=== PATIENT | male | born 1945 | race Caucasian/White ===

== ENCOUNTER 2020-10-31 17:17 | Outpatient (CLI) | payer MEDICARE, OTHER, SELFPAY | END 2020-10-31 17:18 | disposition home or self-care (01) | LOC: ANHCOVIDVC 17:17 | PROVIDERS: PCP Family Medicine | DX: Z23 Encounter for immunization (principal) | CPT/HCPCS: 0001A; 91300 ==

== ENCOUNTER 2020-11-21 17:15 | Outpatient (CLI) | payer MEDICARE, OTHER, SELFPAY | END 2020-11-21 17:16 | disposition home or self-care (01) | LOC: ANHCOVIDVC 17:15 | PROVIDERS: PCP Family Medicine | DX: Z23 Encounter for immunization (principal) | CPT/HCPCS: 0002A; 91300 ==

== ENCOUNTER 2021-03-22 01:16 | Day surgery (SDC) | payer MEDICARE, OTHER, SELFPAY ==
[2021-03-14 10:30] VITALS: BMI 35.9
--- NOTE | 2021-03-21 09:08 | WPDANESEPPF ---
Anes - Initial Pre Proc Eval Procedure: Operation Date: 03/22/21 08:00 Proposed Procedures p Screening Colonoscopy - Johnson Bernard MD Date/Time: 03/21/21 09:08 Surgeon: Johnson Bernard MD Pre Op Diagnosis: hx of colon polyps Patient Data Age: 75 Gender: M Height: 1.73 m Weight: 107 kg Allergies Allergy/AdvReac Type Severity Reaction Status Date / Time hydrocodone AdvReac Mild Other Verified 03/22/21 06:39 Home Medications Medication Instructions Recorded Confirmed Type cholecalciferol (vitamin D3) 125 5,000 unit PO DAILY 12/15/19 03/22/21 History mcg (5,000 unit) capsule tamsulosin 0.4 mg capsule 0.4 mg PO DAILY #90 cap 06/20/20 03/22/21 Rx valsartan 320 mg tablet 320 mg PO DAILY #90 tablet 03/06/21 03/22/21 Rx atorvastatin 20 mg PO HS 03/14/21 03/22/21 History finasteride 5 mg PO HS 03/14/21 03/22/21 History latanoprost 1 drp EACH EYE HS 03/14/21 03/22/21 History metformin 1,000 mg PO QAM 03/14/21 03/22/21 History metformin 500 mg PO HS 03/14/21 03/22/21 History omeprazole 20 mg PO HS 03/14/21 03/22/21 History Patient hx anesthesia problems: none Family hx anesthesia problems: none PMFSH Past Medical History Medical History (Updated 03/21/21 @ 09:09 by Eduard Calabrese DO) BMI 37.0-37.9, adult Chronic midline low back pain without sciatica Diabetes GERD (gastroesophageal reflux disease) Glaucoma Hypertension Kidney stones Mixed hyperlipidemia Surgical History Surgical History History of hernia repair History of incision and drainage neck abscess Family History Family History Father Family history of malignant neoplasm, Onset Age: 72 Mother Family history of malignant neoplasm, Onset Age: 91 Social History Social History Smoking status: Never smoker Alcohol intake: never Substance use: never Substance use type: does not use Living arrangements: with family Spiritual care concerns: No Anes - Eval Final PreProcedure Day of Procedure 03/21/21 09:08 Patient weight: obese Heart: regular rate and rhythm Lungs: clear to auscultation and normal air movement Airway: Mallampati scale class II Neurological: alert and oriented Last oral intake: >/= 8 hours ASA classification: III Emergent: no Anesthetic plan: proceed Anesthesia type and monitoring: general GIVS and standard monitoring Informed Consent: The patient's anesthetic plan and its attendant risks and benefits were discussed with the patient/family/POA. Questions were solicited and answers provided to the satisfaction of the patient/family/POA.
[2021-03-22 06:40] VITALS: BP 144/71; PULSE 66; RESP 18; TEMP 36.1; O2SAT 97; BMI 34.1
[2021-03-22] MEDS: LACTATED RINGERS 1,000 ML 150 ML IV CONT (06:51)
[2021-03-22 06:52] LABS: Glucose Point of Care 92 mg/dl (65-105)
--- NOTE | 2021-03-22 07:20 | PM.HPGS ---
History of Present Illness History of Present Illness Consent: Risks, benefits, and alternatives have been discussed and questions answered. Patient agrees to proceed with procedure. Chief complaint: hx of colon polyps Narrative: John Magdaleno is a 75 year old male here for colon cancer screening. He had a couple of polyps removed 6 years ago Review of Systems Review of Systems: All systems reviewed & are unremarkable except as noted in HPI and below PMFSH Past Medical History Medical History BMI 37.0-37.9, adult Chronic midline low back pain without sciatica Diabetes GERD (gastroesophageal reflux disease) Glaucoma Hypertension Kidney stones Mixed hyperlipidemia Surgical History Surgical History History of hernia repair History of incision and drainage neck abscess Family History Family History Father Family history of malignant neoplasm, Onset Age: 72 Mother Family history of malignant neoplasm, Onset Age: 91 Social History Social History Smoking status: Never smoker Alcohol intake: never Substance use: never Substance use type: does not use Living arrangements: with family Spiritual care concerns: No Meds Home Medications and Allergies Home Medications Medication Instructions Recorded Confirmed Type cholecalciferol (vitamin D3) 125 5,000 unit PO DAILY 12/15/19 03/22/21 History mcg (5,000 unit) capsule tamsulosin 0.4 mg capsule 0.4 mg PO DAILY #90 cap 06/20/20 03/22/21 Rx valsartan 320 mg tablet 320 mg PO DAILY #90 tablet 03/06/21 03/22/21 Rx atorvastatin 20 mg PO HS 03/14/21 03/22/21 History finasteride 5 mg PO HS 03/14/21 03/22/21 History latanoprost 1 drp EACH EYE HS 03/14/21 03/22/21 History metformin 1,000 mg PO QAM 03/14/21 03/22/21 History metformin 500 mg PO HS 03/14/21 03/22/21 History omeprazole 20 mg PO HS 03/14/21 03/22/21 History Allergies Allergy/AdvReac Type Severity Reaction Status Date / Time hydrocodone AdvReac Mild Other Verified 03/22/21 06:39 Vital Signs Vital Signs - 24 hr 03/22/21 06:40 Temperature 36.1 C L Pulse Rate 66 Respiratory Rate 18 Blood Pressure 144/71 H Pulse Oximetry 97 Exam Resp: Auscultation: clear to auscultation bilaterally Cardio: Rate: regular rate Rhythm: regular rhythm GI: GI Palp: Yes Soft to palpation and No Tenderness to palpation present (GI) Assessment and Plan Assessment and plan (1) Colon cancer screening: Code(s): Z12.11 - Encounter for screening for malignant neoplasm of colon Status: Acute Assessment and Plan: Colonoscopy with possible biopsy or polypectomy or cautery or injection of substances.
[2021-03-22 08:24] VITALS: BP 109/65; PULSE 60; RESP 18; O2SAT 95
[2021-03-22 08:34] VITALS: BP 127/79; PULSE 57; RESP 22; O2SAT 97
[2021-03-22 08:44] VITALS: BP 137/81; PULSE 57; RESP 23; O2SAT 98
== END 2021-03-22 08:53 | disposition home or self-care (01) ==
PROVIDERS: PCP Family Medicine; Visit Provider Internal Medicine Gastroenterology
PROC: 0DJD8ZZ Inspection of Lower Intestinal Tract, Via Natural or Artificial Opening Endoscopic (ICD-10-PCS; CPT 45378; principal; 2021-03-22 08:00)
DX: Z12.11 Encounter for screening for malignant neoplasm of colon (principal); K57.30 Diverticulosis of large intestine without perforation or abscess without bleeding; Z86.010 Personal history of colon polyps; E11.9 Type 2 diabetes mellitus without complications; I10 Essential (primary) hypertension; E78.2 Mixed hyperlipidemia; K21.9 Gastro-esophageal reflux disease without esophagitis; H40.9 Unspecified glaucoma; Z79.84 Long term (current) use of oral hypoglycemic drugs; E66.9 Obesity, unspecified; Z68.34 Body mass index [BMI] 34.0-34.9, adult
CPT/HCPCS: G0105; 82948; J2001; J2704; J7120

== ENCOUNTER → 2022-06-28 10:12 | Outpatient (CLI) | payer MEDICARE, OTHER, SELFPAY ==
--- NOTE | ~2022-06-28 | XR_ITS ---
XR chest 2V 06/28/2022 10:35 Indication: Cough Procedure: 2 view chest Comparison: No prior studies for comparison. Findings: Heart size normal. There is a pleural-based density right mid thorax. No focal air space di sease, pulmonary edema, pleural effusion or suspected pneumothorax. Impression: 1: Pleural-based nodular density right mid thorax. Follow-up CT chest recommended. Reviewed, dictated and finalized at location A. Impression: 1: Pleural-based nodular density right mid thorax. Follow-up CT chest recommend ed.
== END ==
PROVIDERS: PCP Family Medicine; Visit Provider Family Medicine
DX: R05.9 Cough, unspecified (principal); R91.8 Other nonspecific abnormal finding of lung field
CPT/HCPCS: 71046

== ENCOUNTER 2022-07-05 14:34 | Outpatient (CLI) | payer MEDICARE, OTHER, SELFPAY ==
--- NOTE | ~2022-07-05 | CT_ITS ---
EXAMINATION:CT diagnostic chest wo con DATE: 07/05/2022 14:51 INDICATION: Lung nodule. Abnormal chest radiograph. TECHNIQUE: Computed tomography (CT) of the chest was performed without intravenous contrast. Automate d exposure control and iterative reconstruction technique were employed. The dose-length product (DLP ) was 596.07 mGy-cm. COMPARISON: Chest 2 views 06/28/2022 FINDINGS: The lungs demonstrate mild atelectasis. A calcified left lung nodule and calcified left hil ar and mediastinal lymph nodes are consistent with old granulomatous disease. No pleural effusion. Th e heart size is normal. There are coronary artery calcifications. No pericardial effusion. There is e ctasia of ascending aorta measuring 4.0 cm. There is mild chronic height loss of multiple thoracic ve rtebral bodies. 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 There are multiple old healed right rib fracture s. IMPRESSION: 1. No abnormal correlate for the chest radiograph finding. Reviewed, dictated and finalized at location A. COUNSELOR
== END 2022-07-05 14:35 | disposition home or self-care (01) ==
PROVIDERS: PCP Family Medicine; Visit Provider Family Medicine
DX: R91.8 Other nonspecific abnormal finding of lung field (principal)
CPT/HCPCS: 71250

== ENCOUNTER 2022-10-10 09:27 | Outpatient (CLI) | payer MEDICARE, OTHER, SELFPAY ==
--- NOTE | 2022-10-10 09:58 | ECHO_ITS ---
Patient Info Name: John Magdaleno Age: 77 years : 1945 Gender: Male Ht: 68 in Wt: 245 lbs BSA: 2.36 m2 HR: 78 bpm BP: 151 / 79 mmHg Technical Quality: Fair Exam Date: 10/10/2022 10:04 AM Exam Location: [facility] Patient Status: Outpatient Admit Date: 10/10/2022 Staff Ordering Physician: Shay Crandall DO Clinical Trial Associate: Gracia Perez RDCS Attending Provider: Shay Crandall DO Referring Physician: Raz HERNANDEZ; Exam Type: CA echo dop color flow w con Study Info Indications R06.09 - Other forms of dyspnea Complete two-dimensional, color flow and Doppler transthoracic echocardiogram is performed with contrast to opacify the left ventricle and to improve the deliniation of the left ventricle endocardial borders. Contrast/Agitated Saline Contrast/Ag. Saline: Definity Amount: 3.00 ml Administered By: Gracia Perez [facility] Existing IV Access: Yes IV Access Condition: patent with no signs of infiltration New IV Access: Dorsum of Hand and Left Site Condition: IV removed Summary 1. Left ventricular chamber dimension is mildly enlarged. 2. Definity contrast administered improved wall motion interpretation. 3. Left ventricular systolic function is normal, estimated at 60-65%. 4. There is mild concentric increased left ventricular wall thickness. 5. The left ventricular diastolic function is grade I diastolic dysfunction. 6. E/e' 10 is mildly elevated. 7. Left atrial chamber dimension is mildly enlarged. 8. There is mild tricuspid valve regurgitation. 9. No pulmonary hypertension, estimated pulmonary arterial systolic pressure is 34 mmHg. Left Ventricle E/e' 10 is mildly elevated. Definity contrast administered improved wall motion interpretation. Left ventricular chamber dimension is mildly enlarged. Left ventricular systolic function is normal, estimated at 60-65%. There is mild concentric increased left ventricular wall thickness. The left ventricular diastolic function is grade I diastolic dysfunction. Right Ventricle Right ventricular chamber dimension is normal. Right ventricular systolic function is normal. Left Atria Left atrial chamber dimension is mildly enlarged. Right Atria Right atrial chamber dimension is normal. Aortic Valve The aortic valve is trileaflet. There is no aortic valve stenosis. There is no aortic valve regurgitation. Pulmonic Valve There is no pulmonic regurgitation. Mitral Valve There is no mitral valve stenosis. There is no mitral valve regurgitation. Tricuspid Valve There is mild tricuspid valve regurgitation. No pulmonary hypertension, estimated pulmonary arterial systolic pressure is 34 mmHg. Pericardium/Pleural There is no pericardial effusion. Inferior Vena Cava Normal inferior vena cava with >50% collapse upon inspiration consistent with normal right atrial pressure, 5 mmHg. Aorta The aortic root size at the sinus of Valsalva is normal. Left Ventricular Outflow Tract Name Value Normal LVOT 2D LVOT Diameter 2.14 cm LVOT Doppler LVOT Peak Gradient 5 mmHg
[2022-10-10] MEDS: PERFLUTREN LIPID MICROSPHERES 1.5 ML VIAL DILUTED TO 10 ML TOTAL VOLUME IV PUSH (10:30)
== END 2022-10-10 09:28 | disposition home or self-care (01) ==
LOC: ANHCARD 09:28
PROVIDERS: PCP Family Medicine; Visit Provider Internal Medicine Cardiovascular Disease
DX: R06.09 Other forms of dyspnea (principal); I36.1 Nonrheumatic tricuspid (valve) insufficiency
CPT/HCPCS: C8929; Q9957

== ENCOUNTER 2022-10-31 08:06 | Outpatient (CLI) | payer MEDICARE, OTHER, SELFPAY ==
--- NOTE | 2022-11-12 13:34 | WPDSLEEPSTUD ---
Sleep Study Date of Study: 10/31/22 Ordering Provider: Shay Crandall DO Interpreting Physician: Clarissa Painting MD Sleep Study Type: Split Polysomnogram Height: 1.73 m Weight: 111.13 kg Body Mass Index: 37.2 Neck Circumference (inches): 20 Surprise: 10 Reason for Sleep Study Excessive sleepiness, snoring Sleep History John Magdaleno is a 77-year-old man with constant loud snoring which always bothers others. He does not awaken at night feeling short of breath, only rarely awakens with heartburn, belching or coughing. He frequently has trouble sleeping with a cold. He does not gasp for breath at night. He rarely sweats excessively at night. He does not notice palpitations or irregular heart beats at night. He occasionally falls asleep in the day, never involuntarily, rarely while driving. He does not have loss of muscle tone with strong emotion. He does not feel paralyzed on waking or falling asleep. He occasionally has vivid dreamlike scenes on waking or falling asleep. He is not afraid to go to sleep. No nightmares. Rarely remembers his dreams. He rarely has racing thoughts. He does not feel sad or depressed. He rarely feels anxious. He occasionally has muscle tension. He does not kick at night, rarely has achy or crawly feelings in his legs at night. He does not have leg pain at night. There is no morning jaw pain. He does not grind his teeth during sleep. He occasionally is bothered by pain during the day, never awakened by pain at night. He frequently wakes up feeling stiff in the morning. He has frequent nocturia. He has memory problems. He often awakens feeling refreshed. Normal bedtime is 12 midnight, falling asleep within 3 minutes, waking to go to urinate 3 times at night. These awakenings occur in the middle of the night and the director organizational hours. He wakes between 8-9 am. His weekend schedule is the same. He takes naps in the early afternoon or evening. A short nap lasting 10-15 minutes can be refreshing. Habits: Caffeine 1-2 per day. No alcohol. No recreational substances. [facility] Past Medical History Medical History (Updated 11/12/22 @ 14:17 by Clarissa Painting MD) BMI 37.0-37.9, adult Chronic midline low back pain without sciatica Cough COVID-19 (08/22/22) COVID-19 starting 08/22/2022 with Paxlovid 08/24/2022. Diabetes GERD (gastroesophageal reflux disease) Glaucoma Hypertension Increased intraocular pressure Kidney stones Lung nodule (06/28/22) pleural-based lung nodule right lung on chest x-ray 06/28/2022 with CXR otherwise normal with no active disease. CT of the chest on 07/05/2022 reveals no evidence of a pleural mass. The patient had granulomatous disease, diffuse degenerative changes of the thoracic spine, coronary artery calcifications, aorta at 4.0 cm. Male erectile dysfunction, unspecified Mixed hyperlipidemia Total cholesterol 142, triglycerides 96, HDL 49, LDL 75 on 12/23/2021. Total cholesterol 135, HDL 48, triglycerides 91, LDL 70 on 06/05/2022. 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 Bernard. Recheck in 5 years. Screening for diabetic retinopathy no diabetic retinopathy on eye exam 12/14/2021. Surgical History Surgical History History of hernia repair History of incision and drainage neck abscess Family History Family History Father Family history of malignant neoplasm, Onset Age: 72 Mother Family history of malignant neoplasm, Onset Age: 91 Social History Social History (Updated 06/28/22 @ 09:01 by Mattie Monique MA) Smoking status: Never smoker Alcohol intake: never Substance use: never Substance use type: does not use Lack of Transportation: No Lack of Food: Never True Current Housing: [facility]
[2022-11-13 16:02] VITALS: BMI 37.2
== END 2022-11-01 07:30 | disposition home or self-care (01) ==
LOC: ANHCSM 08:10
PROVIDERS: PCP Family Medicine; Visit Provider Internal Medicine Cardiovascular Disease
DX: G47.10 Hypersomnia, unspecified (principal); G47.33 Obstructive sleep apnea (adult) (pediatric)
CPT/HCPCS: 95811

== ENCOUNTER 2023-01-12 12:17 | Outpatient (CLI) | payer MEDICARE, OTHER, SELFPAY ==
--- NOTE | ~2023-01-12 | CT_ITS ---
EXAMINATION: CT sinus wo con DATE: 01/12/2023 12:40 INDICATION: Sinusitis TECHNIQUE: Computed tomography (CT) of the paranasal sinuses was performed without intravenous contra st. The dose-length product was 306.67 mGy-cm. Automated exposure control and iterative reconstructio n technique were employed. COMPARISON: None FINDINGS: There is mucosal thickening of the maxillary, sphenoid, frontal and ethmoid sinuses. Mastoi ds are pneumatized. There is a mucous retention cyst of the left maxillary sinus. There is nasal sept al deviation anteriorly to the right and posteriorly to the left. Right ostiomeatal unit is occluded. Left ostiomeatal unit is patent. IMPRESSION: 1. Moderate pansinusitis. Reviewed, dictated and finalized at location B. IMPRESSION: 1. Moderate pansinusitis.
== END 2023-01-12 12:18 | disposition home or self-care (01) ==
PROVIDERS: PCP Family Medicine; Visit Provider Otolaryngology
DX: J34.89 Other specified disorders of nose and nasal sinuses (principal)
CPT/HCPCS: 70486

== ENCOUNTER 2024-05-01 17:36 | Emergency (ER) | payer MEDICARE, OTHER, SELFPAY ==
--- NOTE | ~2024-05-01 | CT_ITS ---
EXAMINATION: CT abdomen pelvis wo con DATE: 05/01/2024 18:06 INDICATION: Flank pain. TECHNIQUE: Computed tomography (CT) of the abdomen and pelvis was performed without intravenous contr ast. Automated exposure control and iterative reconstruction technique were employed. The dose-length product was 1211.14 mGy-cm. COMPARISON: CT abdomen and pelvis 10/28/2018 FINDINGS: The visualized portions of the lung bases demonstrate mild atelectasis. No pleural effusion . Cardiomegaly is noted. No pericardial effusion. There is a small sliding hiatal hernia. The liver, gallbladder, spleen, pancreas, adrenal glands, and left kidney are normal. There is a 4.6 cm cyst in right kidney. There is a 9 mm stone in right kidney. There is mild right hydronephrosis and hydrouret er. There are 5 mm and 4 mm stones in distal right ureter. There is a 5 mm stone at right ureterovesi cular junction. The prostate is mildly enlarged. There is diverticulosis of the colon without evidenc e of diverticulitis. There are no dilated loops of bowel. The appendix is normal. There are no pathol ogically enlarged lymph nodes. There is no free intraperitoneal fluid. There is severe lumbar spondyl osis. IMPRESSION: 1. Stones in the right ureter with mild right hydronephrosis and hydroureter. 2. Nonobstructing right kidney stone. Reviewed, dictated and finalized at location A.
[2024-05-01 17:50] VITALS: BP 144/80; PULSE 97; TEMP 36.4
--- NOTE | 2024-05-01 17:54 | ED.ABDPAIN ---
HPI - Abdominal Pain General Chief Complaint: Back Pain/Injury <Cara Barron PA-C - Last Filed: 05/02/24 15:45> Stated Complaint: lower back pain <Cara Barron PA-C - Last Filed: 05/02/24 15:45> Time Seen by Provider: 05/01/24 17:54 <Cara Barron PA-C - Last Filed: 05/02/24 15:45> Focused HPI: This is a 79-year-old male that presents to the emergency department for right flank pain. Reports longstanding history of kidney stones. He started to develop pain a couple of hours prior to arrival. Feels like he has a kidney stone. GENERAL: Well-appearing, well-nourished, and in no acute distress. HEAD: Normocephalic, atraumatic. CHEST: Clear to auscultation. ?No respiratory distress. HEART: Regular rate and rhythm.? NEURO: ?Alert and oriented x3. Patient screened in triage and initial orders placed.? ?Additional care and disposition to be based upon?diagnostic testing and treatment. <Cara Barron PA-C - Last Filed: 05/02/24 15:45> History of Present Illness HPI narrative: [age] year old male presenting with right flank pain. States that it started earlier this morning and feels like prior kidney stones. States he had 1 episode of vomiting but his nausea is resolved. States that his pain is down to a 2 or 3/10. States that he did have some burning with urination today. No further complaints. <Shawanda Soares MD - Last Filed: 05/03/24 04:13> Related Data Home Medications: Home Medications Medication Instructions Recorded Confirmed cholecalciferol (vitamin D3) 125 5,000 unit PO DAILY 12/15/19 02/13/24 mcg (5,000 unit) capsule latanoprost 0.005 % eye drops 1 drp EACH EYE HS 03/14/21 02/13/24 brimonidine 0.1 % eye drops 1 drp EACH EYE . b.i.d. 12/18/21 02/13/24 (Alphagan P) <KARLOS Linda Last Filed: 05/02/24 15:45> Allergies/Adverse Reactions: Allergies Allergy/AdvReac Type Severity Reaction Status Date / Time hydrocodone AdvReac Mild Other Verified 02/13/24 11:07 <Cara Barron PA-C - Last Filed: 05/02/24 15:45> Review of Systems Review of Systems: All systems reviewed & are unremarkable except as noted in HPI and below <Shawanda Soares MD - Last Filed: 05/03/24 04:13> [facility] Past Medical History Medical History: Medical History At moderate risk for fall BMI 37.0-37.9, adult Chronic midline low back pain without sciatica Controlled diabetes mellitus fasting glucose 115 with hemoglobin A1c 6.1 on 06/28/2023. Cough COVID-19 (08/22/22) COVID-19 starting 08/22/2022 with Paxlovid 08/24/2022. Diabetes Dizziness Encounter for prostate cancer screening PSA 1.1 on 06/05/2022. PSA 2.05 on 06/28/2023. GERD (gastroesophageal reflux disease) Glaucoma Hypertension Increased intraocular pressure Kidney stones Lung nodule (06/28/22) pleural-based lung nodule right lung on chest x-ray 06/28/2022 with CXR otherwise normal with no active disease. CT of the chest on 07/05/2022 reveals no evidence of a pleural mass. The patient had granulomatous disease, diffuse degenerative changes of the thoracic spine, coronary artery calcifications, aorta at 4.0 cm. Male erectile dysfunction, unspecified Mixed hyperlipidemia Total cholesterol 142, triglycerides 96, HDL 49, LDL 75 on 12/23/2021. Total cholesterol 135, HDL 48, triglycerides 91, LDL 70 on 06/05/2022. Total cholesterol 127, triglycerides 83, HDL 48, LDL 62 on 12/31/2022. Cholesterol 149, HDL 52, triglycerides 110, LDL 77 with ratio 2.9 on 06/28/2023. Nasal obstruction CT of the sinuses on 01/12/2023 revealed moderate pansinusitis with deviated nasal septum. 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 Bernard. Recheck in 5 years. Screening for diabetic retinopathy no diabetic re
[2024-05-01 21:43] VITALS: BP 139/77; PULSE 95; RESP 18; TEMP 37; O2SAT 98
[2024-05-01 22:05] LABS: Hematocrit 42.2 % (42.0-52.0); Mean Corpuscular HGB Conc 33.2 g/dl (32-36); Mean Corpuscular Hemoglobin 29.9 pg (26-34); Mean Corpuscular Volume 90.2 fl (80-100); Mean Platelet Volume 10.5 fl (7.4-10.4); Platelet Count Result 211 k/mm3 (150-375); Red Blood Count 4.68 M/mm3 (4.6-6.20); Red Cell Distribution Width 12.8 % (11.5-14.5); White Blood Count 21.8 K/mm3 (4.5-10.0)
[2024-05-01 22:19] LABS: Alanine Aminotransferase 29 U/L (6-50); Albumin Level 4.3 g/dL (3.5-5.1); Alkaline Phosphatase 102 U/L (38-126); Anion Gap 12 mmol/L (4-12); Aspartate Amino Transferase 31 U/L (17-59); Bilirubin,Total 1.4 mg/dL (0.2-1.3); Blood Urea Nitrogen 26 mg/dL (9-20); Calcium 9.8 mg/dL (8.4-10.2); Carbon Dioxide 22 mmol/L (22-30); Chloride 105 mmol/L (98-107); Estimated CRCL calculation 71 ml/min; Estimated Glomerular Filt Rate > 60; Glucose 131 mg/dL (65-110); Lipase 66 U/L (23-300); Potassium 3.7 mmol/L (3.4-5.0); Sodium 139 mmol/L (137-145)
[2024-05-01 22:22] LABS: Band Neutrophils Percent 7 % (0-6); Lymphocytes Absolute Manual 2.83 K/mm3 (1.1-4.5); Monocytes Absolute Manual 1.96 K/mm3 (0.1-0.90); Monocytes Percent Manual 9 % (3-9); Neutrophils Percent Manual 71 % (46-73); Platelet Estimate Adequate (Adequate); Schistocytes None Seen; Total Cells Counted 100
[2024-05-01] MEDS: SODIUM CHLORIDE 0.9% IV 1,000 ML 999 ML IV CONT (22:36)
[2024-05-01] MEDS: KETOROLAC 15 MG/ML VIAL (*BKC) IV PUSH (22:37)
[2024-05-01 22:54] LABS: Add Urine Microscopic? YES; Appearance Urine Turbid (Clear); Bacteria Urine 4+ /hpf; Bilirubin Urine Negative (Negative); Blood Urine 3+ (Negative); Color Urine Dark Yellow (Yellow); Glucose Urine UA Negative (Negative); Ketones Urine 1+ mg/dL (Negative); Leukocyte Esterase Ur 3+ LEU/UL (Negative); Need Manual Microscopic Reviewed; Nitrate Urine Positive (Negative); Non Pathogenic Casts >20; Protein Urine 2+ mg/dL (Negative); RBC Urine 0-2 /hpf (0-2); Specific Grav Ur 1.026 (1.001-1.035); Squamous Epithelial Cell Urine None Seen /hpf (Few); WBC Urine >100 /hpf (0-3); pH Urine 8.5 (5.0-9.0)
[2024-05-01] MEDS: cefTRIAXone 2 GM/NS 100 ML 2 GM/100 ML BAG IVPB (23:07)
[2024-05-01 23:48] VITALS: BP 125/76; PULSE 78; RESP 18; O2SAT 97
[2024-05-02 01:35] VITALS: BP 122/74
== END 2024-05-02 01:36 | disposition home or self-care (01) ==
PROVIDERS: Physician Assistant; Emergency Provider Emergency Medicine; PCP Family Medicine
DX: N39.0 Urinary tract infection, site not specified (principal); N20.1 Calculus of ureter; K21.9 Gastro-esophageal reflux disease without esophagitis; I10 Essential (primary) hypertension; E11.9 Type 2 diabetes mellitus without complications; E78.5 Hyperlipidemia, unspecified; E66.9 Obesity, unspecified; Z68.35 Body mass index [BMI] 35.0-35.9, adult
CPT/HCPCS: 36415; 74176; 80053; 81001; 83690; 85025; 87077; 87086; 87088; 87186; 96361; 96365; 96375; 99284; J0696; J1885; J7030

== ENCOUNTER 2024-05-19 10:03 | Outpatient (CLI) | payer MEDICARE, OTHER, SELFPAY ==
--- NOTE | ~2024-05-19 | XR_ITS ---
XR abdomen/kub 1V Ordering provider: Dae Woody MD History: . kidney stone on left side . Comparison: None. FINDINGS: BOWEL: Nonobstructive bowel gas pattern. ORGANOMEGALY: None. SIGNIFICANT PATHOLOGIC CALCIFICATIONS: Stone is seen in the left side of the pelvis projected over th e lower sacrum. OTHER: No free air is seen under the diaphragm. Degenerative the spine. IMPRESSION: NO ACUTE ABDOMINAL FINDINGS. Stone in the left lower ureter area. Reviewed, dictated and finalized at location A.
== END 2024-05-19 10:04 | disposition home or self-care (01) ==
PROVIDERS: PCP Family Medicine; Visit Provider Urology
DX: N20.0 Calculus of kidney (principal)
CPT/HCPCS: 74018

== ENCOUNTER 2024-05-29 15:00 | Outpatient (CLI) | payer MEDICARE, OTHER, SELFPAY ==
--- NOTE | ~2024-05-29 | CT_ITS ---
EXAMINATION: CT abdomen pelvis wo con DATE: 05/29/2024 15:15 INDICATION: Right ureteral stone. TECHNIQUE: Computed tomography (CT) of the abdomen and pelvis was performed without intravenous contr ast. Automated exposure control and iterative reconstruction technique were employed. The dose-length product was 642.30 mGy-cm. COMPARISON: CT abdomen and pelvis 05/01/2024 FINDINGS: The visualized portions of the lung bases demonstrate mild atelectasis. No pleural effusion . The heart size is normal. There are coronary artery calcifications. No pericardial effusion. There is a small sliding hiatal hernia. The liver, spleen, gallbladder, pancreas, adrenal glands, and left kidney are normal. There is a 4.7 cm cyst in right kidney. There is a 12 x 6 mm stone in right ureter . The prostate is moderately enlarged. There is diverticulosis of the colon without evidence of diver ticulitis. There are no dilated loops of bowel. The appendix is normal. There are no pathologically e nlarged lymph nodes. There is no free intraperitoneal fluid. There is severe lumbar spondylosis. IMPRESSION: 1. 12 x 6 mm stone in right ureter. No hydronephrosis. Reviewed, dictated and finalized at location A.
== END 2024-05-29 15:01 | disposition home or self-care (01) ==
PROVIDERS: PCP Family Medicine; Visit Provider Urology
DX: N20.1 Calculus of ureter (principal)
CPT/HCPCS: 74176

== ENCOUNTER 2024-06-11 01:23 | Day surgery (SDC) | payer MEDICARE, OTHER, SELFPAY ==
--- NOTE | 2024-06-10 12:02 | PC.NURSE ---
Report to the Outpatient Waiting Room, entrance under the green pavilion located off [facility], at time 10:15 on date 06/11/24 . Planned Procedure Time: __1215 .? Time changes happen often and if your time is changed the preop area will call you the afternoon before. - You and your visitor will be asked to self-screen and do not enter if you have any COVID symptoms. Please call surgeon if you need to reschedule. - A mask is optional within the hospital at this time. Patients may have clear liquids (water, carbonated beverages, clear teas, apple juice) until 3 hours prior to surgery ( 9:15 AM)with a maximum of 20 ounces. - No food from midnight until time of surgery and no smoking - Infants may have breast milk until 4 hours before surgery, formula 6 hours prior to surgery. - Children will be allowed to drink immediately following surgery.? If applicable, please bring a bottle or sippy cup to assist with drinking. Juice, water, soda, and popsicles are readily available.? For infants on formula, please bring formula the day of surgery.? Pacifiers are allowed. Take only the following medications with a SIP of water on the morning of surgery: _EYE DROP, DO NOT STOP ANY OF YOUR OTHER PRESCRIPTION MEDICATIONS PRIOR TO SURGERY EXCEPT THE FOLLOWING Medications to discontinue per physician ___STATES LAST DOSE VITAMIN 06/10/24 Date to take last dose Please no make-up, nail malaysian, hairspray, perfume, deodorant, or body powder the day of surgery.? No jewelry (including any body piercings) or valuables the day of surgery, leave them at home.? Please take a shower or bath the night before, or the morning of, surgery with an antibacterial soap.? Wear comfortable, loose fitting clothing.? Children are encouraged to wear pajamas. - Jewelry must be removed prior to entering the operating room.? Rings and piercings that are not removed may be cut off. - The hospital will not accept responsibility for valuables.? - Please leave all valuables, including medications, at home the day of surgery. If you are going home after surgery, a licensed school bus driver/custodian must drive you home.? - NO public transportation without another adult if you receive anesthesia. - We recommend that an adult stay with you for 24 hours following discharge. - We also recommend that you do not drive, make important decision, drink alcoholic beverages, or take any drugs that were not prescribed by your health care provider for at least 24 hours after your discharge time. For Pediatric surgeries, we recommend two adults accompany the child home. Follow any additional instructions given to you from your surgeon. Telephone instructions given to __PATIENT and asked if any additional questions and then verbalized understanding. Patient advised to call surgeon office or pre surgery nurse liaison [phone] if any additional questions.
[2024-06-10 12:11] VITALS: BMI 35.7
[2024-06-11] VITALS (9 sets, daily range): BP systolic 125–153; BP diastolic 53–79; PULSE 61–70; RESP 11–24; TEMP 36.6; O2SAT 97–100
--- NOTE | ~2024-06-11 | CT_ITS ---
Non-contrast CT scan of the Abdomen and Pelvis Clinical indication: Right renal stone Technique: 2.5 mm axial scans were obtained through the abdomen and pelvis without intravenous or or al contrast. Dose reduction technique was used on this scan by utilizing automated exposure control a nd iterative reconstruction technique. The dose-length product (DLP) was 629.81 mGy-cm. COMPARISON: 05/29/2024 Findings: Images through the lung bases reveal no abnormalities. There is a 1 cm ovoid stone at the mid to distal right ureter (axial image 120) this is, with minimal right hydroureteronephrosis to this level. No left renal or left ureteral stone. No left hydronephro sis. Right renal cyst present. The liver, spleen, pancreas, gallbladder, and adrenals appear normal. There is no aortic aneurysm. There is no evidence of bowel obstruction. Images through the pelvis were performed. There is no evidence of ascites or lymphadenopathy. Urinary bladder unremarkable. Prostate gland is enlarged. Impression: 1 cm ovoid mid to distal right ureteral stone. Minimal fullness of the right ureter and collecting sy stem. Findings are essentially stable from prior exam. Enlarged prostate gland. Reviewed, dictated and finalized at location . Impression: 1 cm ovoid mid to distal right ureteral stone. Minimal fullness of the right ur eter and collecting system. Findings are essentially stable from prior exam. Enlarged prostate gland.
--- NOTE | ~2024-06-11 | XR_ITS ---
EXAMINATION: XR retrograde pyelo w/stent RT DATE: 06/11/2024 13:23 INDICATION: Right internal ureteral stent placement TECHNIQUE: Fluoroscopic images from a right internal ureteral stent placement are submitted for alvaro blanchard 98 seconds of fluoroscopy time. FINDINGS: There is a right double-J internal ureteral stent projecting in expected position.. IMPRESSION: 1. Right internal ureteral stent placement. Please refer to real-time procedural findings for detai ls. Reviewed, dictated and finalized at location B. IMPRESSION: 1. Right internal ureteral stent placement. Please refer to real-time procedu ral findings for details.
--- NOTE | 2024-06-11 06:29 | WPDHPUPDATE1 ---
History and Physical Update Update Date/Time: 06/11/24 06:29 History and Physical has been reviewed, including an updated exam of the patient. There are NO changes in the patient's condition. Risks, benefits, and alternatives have been discussed and questions answered. Patient agrees to proceed with procedure.
--- NOTE | 2024-06-11 11:02 | ECG_ITS ---
Test Date: 2024-06-11 11:20:16 Measurements Intervals [place] Rate: 64 P: 54 AL: 154 QRS: -11 QRSD: 108 T: -5 QT: 399 QTc: 414 Interpretive Statements SINUS RHYTHM No previous ECG available for comparison Electronically Signed On 06-11-2024 14:25:21 CDT by Bay Samuels M.D.
[2024-06-11] MEDS: LACTATED RINGERS 1,000 ML 30 ML IV CONT (11:15)
[2024-06-11 11:42] LABS: Glucose Point of Care 99 mg/dl (65-105)
--- NOTE | 2024-06-11 12:16 | WPDANESEPPF ---
Anes - Initial Pre Proc Eval Procedure: Operation Date: 06/11/24 12:15 Proposed Procedures p Cystoscopy, Right Ureteroscopy, Laser Lithotripsy, Stone Extraction, Possible Right Retrograde Pyelogram, Possible Right Ureteral Stent Placement - Dae Woody MD Date/Time: 06/11/24 12:16 Surgeon: Dae Woody MD Pre Op Diagnosis: Right ureteral stone Patient Data Age: 79 Gender: M Height: 1.73 m Weight: 106.6 kg Allergies Allergy/AdvReac Type Severity Reaction Status Date / Time hydrocodone AdvReac Mild Other Verified 06/10/24 11:50 Home Medications Medication Instructions Recorded Confirmed Type cholecalciferol (vitamin D3) 125 5,000 unit PO DAILY 12/15/19 06/10/24 History mcg (5,000 unit) capsule latanoprost 0.005 % eye drops 1 drp EACH EYE HS 03/14/21 06/10/24 History brimonidine 0.1 % eye drops 1 drp EACH EYE . b.i.d. 12/18/21 06/10/24 History (Alphagan P) tamsulosin 0.4 mg capsule 0.4 mg PO DAILY #90 caps 09/30/23 06/10/24 Rx valsartan 320 mg tablet 320 mg PO DAILY #90 tabs 09/30/23 06/10/24 Rx atorvastatin 20 mg tablet 20 mg PO DAILY #90 tabs 10/17/23 06/10/24 Rx omeprazole 20 mg capsule,delayed 20 mg PO DAILY #90 caps 11/28/23 06/10/24 Rx release finasteride 5 mg tablet 5 mg PO DAILY #90 tabs 12/11/23 06/10/24 Rx metformin 500 mg tablet,extended 1,000 mg PO BID #360 tabs 01/10/24 06/10/24 Rx release 24 hr Laboratory Tests 06/11/24 11:39 POC Capillary Glucose 99 mg/dl (65-105) Patient hx anesthesia problems: none Family hx anesthesia problems: none Results Review: All pre-operative results and documents have been reviewed as part of the pre-operative evaluation. [facility] Past Medical History Medical History Abnormal fasting glucose Fasting glucose 115 with hemoglobin A1c 6.2 on 12/23/2021. Glucose 112 with hemoglobin A1c 6.3 on 06/05/2022. Fasting glucose 110 with hemoglobin A1c 6.4 on 12/31/2022. Fasting glucose 115 with hemoglobin A1c 6.1 on 06/28/2023. At moderate risk for fall BMI 37.0-37.9, adult Chronic midline low back pain without sciatica Controlled diabetes mellitus fasting glucose 115 with hemoglobin A1c 6.1 on 06/28/2023. Glucose 117, hemoglobin 16.6, urine microalbumin ratio of 23 with GFR 90 on 03/06/2024. Cough COVID-19 (08/22/22) COVID-19 starting 08/22/2022 with Paxlovid 08/24/2022. Dizziness Encounter for prostate cancer screening PSA 1.1 on 06/05/2022. PSA 2.05 on 06/28/2023. GERD (gastroesophageal reflux disease) Glaucoma Hypertension Increased intraocular pressure Kidney stones Lung nodule (06/28/22) pleural-based lung nodule right lung on chest x-ray 06/28/2022 with CXR otherwise normal with no active disease. CT of the chest on 07/05/2022 reveals no evidence of a pleural mass. The patient had granulomatous disease, diffuse degenerative changes of the thoracic spine, coronary artery calcifications, aorta at 4.0 cm. Male erectile dysfunction, unspecified Mixed hyperlipidemia Total cholesterol 142, triglycerides 96, HDL 49, LDL 75 on 12/23/2021. Total cholesterol 135, HDL 48, triglycerides 91, LDL 70 on 06/05/2022. Total cholesterol 127, triglycerides 83, HDL 48, LDL 62 on 12/31/2022. Cholesterol 149, HDL 52, triglycerides 110, LDL 77 with ratio 2.9 on 06/28/2023. Cholesterol 155, triglycerides 127, HDL 49, LDL 84 with ratio 3.2 on 03/06/2024. Nasal obstruction CT of the sinuses on 01/12/2023 revealed moderate pansinusitis with deviated nasal septum. 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 Bernard. Recheck in 5 years. Screening for diabetic retinopathy no diabetic retinopathy on eye exam 12/14/2021. No retinopathy on 07/26/2023. Strain of left groin (~04/2023) Tachycardia Surgical History Surgical History (Reviewed 06/11/24 @ 12
[2024-06-11] MEDS: ceFAZolin 2 GM/D5W 50 ML 2 GM/50 ML BAG IVPB (12:30)
[2024-06-11] MEDS: LIDOCAINE HCL 2% GEL UROJET 10 ML PKG MUCOUS MEM (12:51)
--- NOTE | 2024-06-11 13:16 | W.PM.PROC2 ---
Procedure Note - Detailed Date of Procedure 06/11/24 Pre-op Diagnosis Right ureteral stone Post-op Diagnosis Same Procedure Performed Cystoscopy, right ureteroscopy with laser lithotripsy, stone extraction, retrograde pyelogram and stent placement Surgeon Dae Woody MD Anesthesia General Description of Procedure Patient brought to the operative suite was prepped draped in routine sterile fashion while in dorsal lithotomy position after the uneventful induction of a general LMA anesthetic. Cystoscopy was undertaken with a 21 F rigid cystoscope. He has no urethral stricture but notable prostatic hyperplasia and a small median lobe. His prostatic urethra measures approximately 3 cm. The bladder shows mild trabeculation but there was no intravesical foreign body or neoplasm. He has a single orthotopic ureteral orifice bilaterally. A 0.035 in glidewire advanced into the right renal pelvis under fluoroscopy. A safety wire was placed. The distal ureter was dilated with an 8 F 10 F dilator and an 11 F/ 13 F ureteral access sheath was placed. Flexible ureteroscopy was undertaken with a 7.5 F digital flexible ureteral scope. He has a large mid ureteral stone. Using a 200 micron Brock laser the stone is fractured into multiple small pieces all of which are extracted with a 1.9 F disposable stone basket. Retrograde pyelogram was obtained 0.8 F stent was positioned with the proximal coil renal pelvis and the distal coil in the bladder. Scopes wires removed the patient was taken recovery room good condition. Drains Yes Packing No Pathology Yes Complications No immediate complications Condition Stable
[2024-06-11 14:25] LABS: Glucose Point of Care 106 mg/dl (65-105)
== END 2024-06-11 15:15 | disposition home or self-care (01) ==
PROVIDERS: PCP Family Medicine; Visit Provider Urology
PROC: (CPT 52352; principal; 2024-06-11 12:15)
DX: N20.1 Calculus of ureter (principal); I10 Essential (primary) hypertension; N52.9 Male erectile dysfunction, unspecified; E78.2 Mixed hyperlipidemia; K21.9 Gastro-esophageal reflux disease without esophagitis; E11.9 Type 2 diabetes mellitus without complications; G89.29 Other chronic pain; M54.50 Low back pain, unspecified; E66.01 Morbid (severe) obesity due to excess calories; Z68.35 Body mass index [BMI] 35.0-35.9, adult; Z79.84 Long term (current) use of oral hypoglycemic drugs; Z98.890 Other specified postprocedural states; Z86.0100 Personal history of colon polyps, unspecified; Z80.9 Family history of malignant neoplasm, unspecified
CPT/HCPCS: 52356; 74176; 74420; 82365; 82948; 88300; 93005; C1769; C1894; C2617; J0690; J1100; J2003; J2405; J2704; J3010; J7120; Q9966

== ENCOUNTER 2024-08-25 07:25 | Outpatient (CLI) | payer MEDICARE, OTHER, SELFPAY ==
--- NOTE | ~2024-08-25 | MR_ITS ---
MRI of the abdomen: Clinical indication: Neoplasm of uncertain behavior. Technique: Coronal SSFSE ARC, WATER:coronal LAVA-FLEX, Coronal 2D FIESTA FatSat, Axial SSFSE BH ARC, Axial 3D DualEcho BH, Axial SSFSE-IR, Axial DWI b=500, Axial 2D FIESTA FatSat, pre and dynamic postco ntrast Axial LAVA ARC, postcontrast Coronal In and Opposed phase LAVA FLEX . Following intravenous ad ministration of 20 cc MultiHance gadolinium, T1-weighted fat-sat imaging was performed in the axial a nd coronal planes. Findings: Gallbladder unremarkable. The common bile duct is normal in course and caliber. No filling defects are seen within the CBD. No evidence of intrahepatic biliary ductal dilatation. The pancreati c duct is normal in size. Liver, spleen, adrenals, left kidney appear normal. Several subcentimeter cystic lesions in the pancr eas are noted. No main pancreatic ductal dilatation. Right renal cysts are present. The aorta and the paraaortic regions appear normal. 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 Reviewed, dictated and finalized at location . 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
--- OUTSIDE RECORDS SUMMARY | 2024-09-01 03:58 | XMS_ITS | Clinical Summary ---
Author Organization [facility] Address [address] [place] [address] Care Team Providers Care Egg Trayer Name Role Phone Bharathi Lopez MD Primary Care Provider [phone] Source Comments [facility],non-owned Affiliates and Associated Physician Practices is amultiple site organization consisting of ambulatory clinics and hospital sitesin [place], [place] and [place]. This disclosure is being madepursuant to the Care Everywhere program and may not contain all information available regarding this patient. Last updated 18.[facility] Allergies No known active allergies Medications * Be aware that medications may not be up to date on this document. Alwaysverify current medications with the patient. Medication Sig Dispensed Refills Start Date End Date Status RABEprazole EC (ACIPHEX) 20 MG tablet Take 20 mg by mouth once daily. Active metformin ER 24hr (GLUCOPHAGE XR) 500MG tablet Take 500 mg by mouth 2 times daily,before breakfast and supper. Active enalapril (VASOTEC) 20 MG tablet Take 20 mg by mouth 2 times daily. Active Dutasteride-Tamsulosi n HCl (NAV) 0.5-0.4 MG CAPS Take 1 Tab by mouth at bedtime. Active pravastatin (PRAVACHOL) 40 MG tablet Take 80 mg by mouth at bedtime. Active Cyanocobalamin (VITAMIN B-12) 5000 MCG SUBL Dissolve 1 Tab under the tongue once daily after breakfast. Active Social History Tobacco Use Types Packs/Day Years Used Date Smoking Tobacco: Former Cigars Q uit: 08/26/1979 Alcohol Use Standard Drinks/Week Comments No 0 (1 standard drink = 0.6 oz pur e alcohol) Sex and Gender Information Value Date Recorded Sex Assigned at Not on file Gender Identity Not on file Sexual Orientation Not on file Last Filed Vital Signs Vital Sign Reading Time Taken Comments Blood Pressure 141/90 02/02/2014 1:59 PM CDT Pulse 60 02/02/2014 1:59 PM CDT Temperature 36.2 ??C (97.2 ??F) 02/02/2014 1:59 PM CD T Respiratory Rate 16 02/02/2014 1:59 PM CDT Oxygen Saturation 100% 02/02/2014 1:59 PM CDT Inhaled Oxygen Concentration - - Weight 101.6 kg (224 lb) 02/02/2014 11:03 AM CDT Height 172.7 cm (5' 8 ) 02/02/2014 11:03 AM CDT Body Mass Index 34.06 02/02/2014 11:03 AM CDT Plan of Treatment Health Maintenance Due Date Last Done Comments MEDICARE AWV ? 12 MONTHS 1945 HEPATITIS C SCREENING 04/02/1965 DTAP/TDAP/TD VACCINES (1 - Tdap) 1966 ZOSTER VACCINE (1 of 2) 1997 PNEUMOCOCCAL VACCINE 65+ (1 of 1 - PCV) 2012 Respiratory Syncytial Virus (RSV) Vaccine Pt: or over 60 yrs (1 - 1-dose 75+ series) 2022 DEPRESSION SCREENING 08/26/2023 COVID-19 VACCINE ( - 2023-2 5 season) 2024 INFLUENZA VACCINE (#1) 2024 HEPATITIS B VACCINE Aged Out No longe r eligible based on patient's age to complete this topic HIB VACCINE Aged Out No longer eligi ble based on patient's age to complete this topic HPV VACCINE Aged Out No longer eligi ble based on patient's age to complete this topic MENINGOCOCCAL VACCINE Aged Out No blaire geovany eligible based on patient's age to complete this topic Care Teams Egg Trayer Relationship Specialty Start Date End Date Bharathi Lopez MD PCP - General Family Medicine 01/25/14
--- OUTSIDE RECORDS SUMMARY | 2024-09-01 03:58 | XMS_ITS | Patient Health Summary ---
Author Organization [facility] Address [address] [place] [address] Care Team Providers Care Senior Scrum Master Name Role Phone Bharathi Lopez MD Primary Care Provider [phone] Note from [facility],non-owned Affiliates and Associated Physician Practices is amultiple site organization consisting of ambulatory clinics and hospital sitesin [place], [place], [place] and [place]. This disclosure is being madepursuant to the Care Everywhere program and may not contain all information available regarding this patient. Last updated 18.[facility] Allergies No known active allergies Medications * Be aware that medications may not be up to date on this document. Alwaysverify current medications with the patient. * RABEprazole EC (ACIPHEX) 20 MG tablet Take 20 mg by mouth once daily. * metformin ER 24hr (GLUCOPHAGE XR) 500MG tablet Take 500 mg by mouth 2 times daily,before breakfast and supper. * enalapril (VASOTEC) 20 MG tablet Take 20 mg by mouth 2 times daily. * Dutasteride-Tamsulosin HCl (NAV) 0.5-0.4 MG CAPS Take 1 Tab by mouth at bedtime. * pravastatin (PRAVACHOL) 40 MG tablet Take 80 mg by mouth at bedtime. * Cyanocobalamin (VITAMIN B-12) 5000 MCG SUBL Dissolve 1 Tab under the tongue once daily after breakfast. Social History Tobacco Use Types Packs/Day Years [...] Mass Index 34.06 02/02/2014 11:03 AM CDT Procedures * CYSTOSCOPY WITH RETROGRADE PYELOGRAM(Performed 02/02/2014) Performed for Calculus of ureter * GLUCOSE - POINT OF CARE(Performed 02/02/2014) * GLUCOSE - POINT OF CARE(Performed 02/02/2014) * BASIC METABOLIC PANEL (CALCIUM TOTAL)(Performed 01/25/2014) Performed for Preop examination * CULTURE URINE(Performed 01/25/2014) Performed for Preop examination * EKG 12-LEAD(Performed 01/25/2014) Performed for Preop examination Results * GLUCOSE - POINT OF CARE (02/02/2014 1:32 PM CDT) Only the most recent of2 resultswithin the time period is included. Pathologist [facility] [place] Glucose WB/POC 100 70 - 106 mg/dL 02/03/2014 7:13 AM CDT [facility] Blood BLOOD SPECIMEN / Unknown 02/02/2014 1:32 PM CDT 02/03/2014 7:13 AM CDT Sumeet Rhoades MD LAB - POINT OF CARE ORDERABLES [facility] [address] [place] [address] * (ABNORMAL) BASIC METABOLIC PANEL (CALCIUM TOTAL) (01/25/2014 3:41 PM CDT) Pathologist [facility] [place] Glucose 96 74 - 106 mg/dL 01/25/2014 4:34 PM CDT [facility] Sodium 136 136 - 145 mmol/L 01/25/2014 4:34 PM CDT [facility] Potassium 4.2 3.5 - 5.1 mmol/L 01/25/2014 4:34 PM CDT [facility] Chloride 102 98 - 107 mmol/L 01/25/2014 4:34 PM CDT [facility] CO2 29 22 - 31 mmol/L 01/25/2014 4:34 PM CDT [facility] Calcium 9.7 8.5 - 10.1 mg/dL 01/25/2014 4:34 PM CDT [facility] Anion Gap 5 5 - 15 mmol/L 01/25/2014 4:34 PM CDT [facility] BUN 15 7 - 21 mg/dL 01/25/2014 4:34 PM CDT [facility] Creatinine 0.49(L) 0.50 - 1.30 mg/dL 01/25/2014 4:34 PM CDT [facility] eGFR by MDRD >60 >60 mL/min/1.7 3m2 01/25/2014 4:34 PM CDT [facility] eGFR by MDRD >60 >60 mL/min/1.7 3m2 01/25/2014 4:34 PM CDT [facility] Blood BLOOD SPECIMEN / Unknown 01/25/2014 3:41 PM CDT 01/25/2014 4:21 PM CDT Sumeet Rhoades MD LAB - CHEMISTRY DES BARRAZA Performing Organization Address City/[facility]/ZIP Co de Phone Number [facility] [address] [place] [address] * CULTURE URINE (01/25/2014 3:41 PM CDT) Culture No Growth (<1,000 CFU/mL) 01/27/2014 5:35 AM CDT [facility] Urine URINE SPECIMEN OBTAINED BY CLEAN CATCH PROCEDURE / Unknown 01/25/2014 3:41 PM CDT 01/25/2014 4:21 PM CDT Sumeet Rhoades MD LAB - MICROBIOLOGY O RDERABLES Performing Organization Address City/[facility]/ZIP Co de Phone Number [facility] [address] [place] [address], [facility] * EKG 12-LEAD (01/25/2014 2:30 PM CDT) Ventricular Rate 71 BPM [facility] Atrial Rate 71 BPM [facility] P-R Interval 158 ms [facility] QRS Duration ms 98 ms [facility] Q-T Interval ms 368 ms [facility] QTC Calculation (Bezet) 399 ms [facility] Calculated P [place] 22 degrees [facility] Calculated R [place] -3 degrees [facility] Interpretation EKG Normal sinus rhythm Normal ECG No previous ECGs available Confirmed by ELINA ZHONG, ANAHI ([id number]) on 01/26/2014 3:17:37 PM [facility] 01/25/2014 2:30 PM CDT 01/26/2014 3:17 PM CDT Narrative [facility] - 01/26/2014 2:17 PM CDT Procedure Note Document, Scanned - 01/25/2014 3:51 PM CDT Transcriptions Document, Scanned - 01/26/2014 7:10 AM CDT Document, Scanned - 01/26/2014 3:19 PM CDT Sumeet Rhoades MD ECG ORDERABLES [facility] Care Teams Senior Scrum Master Relationship Specialty Start Date End Date Bharathi Lopez MD PCP - General Family Medicine 01/25/14
--- OUTSIDE RECORDS SUMMARY | 2024-09-01 03:58 | XMS_ITS | Encounter Summary ---
Author Organization [facility] Address [address] [facility] [place] [address] Care Team Providers Care Trimmer Meat Name Role Phone Bharathi Lopez MD Primary Care Provider [phone] Reason for Visit * Auth/Cert - Closed Specialty Diagnoses / Procedures Referred By Mitchell polk Referred To Contact Diagnoses Calculus of ureter Procedures CYSTOSCOPY WITH RETROGRADE URETEROPYELOGRAPHY Referral ID Status Reason Start Date Expiration Date Visits Re quested Visits Authorized [id number] Closed 1 1 Encounter Details Date Type Department Care Team (Late st Contact Info) Description 02/02/2014 12:30 PM CDT - 02/02/2014 1:20 PM CDT [facility] [id number] [place] [id number] Sumeet Rhoades MD [address] [place] [id number] CYSTOSCOPY WITH RETROGRADE PYELOGRAM Surgery Details Date/Time Status Location OR Service Patient Class Case Class Case Type Trauma Case? 02/02/2014 12:30 PM Posted [facility] MAIN OR OR 17 Cysto Urology Surgery Day Care Elective > 5 days Panel 1 Procedure LRB Anes Op Region Wound Class Comments CYSTOSCOPY WITH RETROGRADE PYELOGRAM Left General Bladder Clean Contaminated CYSTOSCOPY LEFT RETROGRADE PYLOGRAM, LEFT URETEROSCPOY Surgeon Surgeon Role Service Panel Sumeet Rhoades MD Primary Urology 1 documented in this encounter Social History Tobacco Use Types Packs/Day Years Used Date Smoking Tobacco: Former Cigars Q uit: 08/26/1979 Alcohol Use Standard Drinks/Week Comments No 0 (1 standard drink = 0.6 oz pur e alcohol) Sex and Gender Information Value Date Recorded Sex Assigned at Not on file Gender Identity Not on file Sexual Orientation Not on file documented as of this encounter Last Filed Vital Signs Vital Sign Reading [...] Mass Index 34.06 02/02/2014 11:03 AM CDT documented in this encounter Discharge Instructions * Discharge Instructions* Zofia Najera RN - 02/02/2014 2:02 PM CDT The following belongings have been returned to you: Clothing: Yes, With Patient: Shirt;Pants;Footwear;Undergarments Jewelry: None Electronic Items: None Dentures/Retainers: Yes Visual Aids: Yes, Glasses: (all belongings to ) Hearing Aids: None Equipment with Patient: None Home Medications: Yes, Sent Home: Yes Miscellaneous Items: None Monetary Items: None * Discharge Instructions* Document, Scanned - 02/03/2014 7:18 PM CDT documented in this encounter Medications at Time of Discharge Medication Sig Dispensed Refills Start Date End Date Cyanocobalamin (VITAMIN B-12) 5000 MCG SUBL Dissolve 1 Tab under the tongue once daily after breakfast. Dutasteride-Tamsulosin HCl (NAV) 0.5-0.4 MG CAPS Take 1 Tab by mouth at bedtime. enalapril (VASOTEC) 20 MG tablet Take 20 mg by mouth 2 times daily. metformin ER 24hr (GLUCOPHAGE XR) 500MG tablet Take 500 mg by mouth 2 times daily,before breakfast and supper. pravastatin (PRAVACHOL) 40 MG tablet Take 80 mg by mouth at bedtime. RABEprazole EC (ACIPHEX) 20 MG tablet Take 20 mg by mouth once daily. documented as of this encounter H&P Notes * Document, Scanned - 02/03/2014 7:18 PM CDT documented in this encounter OR Notes * Operative - Sumeet Rhoades MD - 02/02/2014 2:45 PM CDT [facility] OPERATIVE REPORT PATIENT: : ANDREINA THOMAS MR#: [id number] ADMIT DATE: 02/02/2014 CSN: [id number] DATE OF SURGERY: 02/02/2014 : 1945 PHYSICIAN: Sumeet Rhoades MD ROOM: [facility] PREOPERATIVE DIAGNOSIS: Left distal stone. POSTOPERATIVE DIAGNOSIS: Passed stone. PROCEDURES PERFORMED: Cystoscopy, left retrograde pyelogram, left ureteroscopy. SURGEON: Sumeet Rhoades M.D. ANESTHESIA: General. COMPLICATIONS: None. SPECIMENS: None. TUBES: None. INDICATIONS FOR PROCEDURE: The patient is a 68-year-old with what appears to be a left distal stone that he has been unable to pass. He presents for endoscopic manipulation. INFORMED CONSENT: PROCEDURE: The patient was taken to the operating room. After induction of general anesthesia, he was placed in lithotomy position. Perineum was prepped and draped in the sterile fashion. A 21-Hong Konger cystoscope was placed in the bladder. The urethra was normal. The prostatic urethra was obstructed. The bladder was carefully inspected with 30 and 70-degree lenses. There was no mucosal abnormality, stones, or tumors. Retrograde appeared to show calcification at the UVJ. A 0.035 inch sensor wire was placed into the renal pelvis. A 10-Hong Konger dilator was replaced across the ureter orifice. I was easily able to pass the short, rigid ureteroscope into the distal ureter where no stones were seen. The wire was removed and there was good efflux of urine from the kidney. So the procedure was terminated. The patient was taken to recovery room in stable condition ESTIMATED BLOOD LOSS: COMPLICATIONS: CONDITION: DISPOSITION: Sumeet Rhoades MD SWB/MODL #: [id number] documented in this encounter Miscellaneous Notes * Miscellaneous Scans - Document, Scanned - 02/03/2014 7:18 PM CDT * Miscellaneous Scans - Document, Scanned - 02/03/2014 7:18 PM CDT * Miscellaneous Scans - Document, Scanned - 02/03/2014 7:18 PM CDT * Miscellaneous Scans - Document, Scanned - 02/03/2014 7:18 PM CDT * Miscellaneous Scans - Document, Scanned - 02/03/2014 7:18 PM CDT * Miscellaneous Scans - Document, Scanned - 02/03/2014 7:18 PM CDT documented in this encounter Plan of Treatment Not on file documented as of this encounter Procedures Procedure Name Priority Date/Time Associated Diagnosis Comments CYSTOSCOPY WITH RETROGRADE PYELOGRAM 02/02/2014 5:48 PM CDT Calculus of ureter GLUCOSE - POINT OF CARE Routine 02/02/2014 1:32 PM CDT GLUCOSE - POINT OF CARE Routine 02/02/2014 11:21 AM CDT documented in this encounter Results * GLUCOSE - POINT OF CARE (02/02/2014 1:32 PM CDT) Glucose WB/POC 100 70 - 106 mg/dL 02/03/2014 7:13 AM CDT [facility] Blood BLOOD SPECIMEN / Unknown 02/02/2014 1:32 PM CDT 02/03/2014 7:13 AM CDT Sumeet Rhoades MD LAB - POINT OF CARE ORDERABLES Performing Organization Address City/[facility] Co de Phone Number [facility] [address] [place] [address] * GLUCOSE - POINT OF CARE (02/02/2014 11:21 AM CDT) Glucose WB/POC 100 70 - 106 mg/dL 02/02/2014 11:23 AM CDT [facility] Blood BLOOD SPECIMEN / Unknown 02/02/2014 11:21 AM CDT 02/02/2014 11:23 AM CDT Sumeet Rhoades MD LAB - POINT OF CARE ORDERABLES Performing Organization Address [facility] de Phone Number [facility] [address] [place] [address] documented in this encounter Visit Diagnoses Diagnosis Kidney stone- Primary Calculus of kidney Calculus of ureter documented in this encounter Administered Medications Inactive Administered Medications - up to 3 most recent administrations Medication Order MAR Action Action Date Dose Rate Site 0.9% nacl irrigation solution PRN, Other, Starting on Sat02/02/14 at 1245, Until Sat02/02/14 at 1310, Intra-op $ Given 02/02/2014 12:45 PM CDT 3,000 mL famotidine (PEPCID) tablet 20 mg 20 mg, Oral, PRE-OP ONCE, 1 dose, Pre-op $ Given 02/02/2014 10:59 AM CDT 20 mg iothalamate meglumine (CONRAY 60) 60 % injection PRN, Starting on Sat02/02/14 at 1245, Until Sat02/02/14 at 1310, Intra-op $ Given 02/02/2014 12:45 PM CDT 8 mL lactated ringers infusion at 20 mL/hr, Intravenous, PRE-OP CONTINUOUS, Starting on Sat02/02/14 at 1045, Until Sat02/02/14 at 1524, Pre-op $ New Bag/Syringe 02/02/2014 1:00 PM CDT mL $ New Bag/Syringe 02/02/2014 10:59 AM CDT 20 mL /hr lidocaine buffered 1 % injection Infiltration, PRE-OP MULTIPLE, 3 doses, Starting on Sat02/02/14 at 1036, Until Sat02/02/14 at 1524, May be used (0.2 ml locally to anesthetize prior to insertion if patient has NKA to Lidocaine)., Pre-op $ Given 02/02/2014 10:59 A M CDT 0.5 mL ondansetron (disintegrating) (ZOFRAN ODT) tablet 4 mg 4 mg, Oral, PRE-OP ONCE, 1 dose, Pre-op $ Given 02/02/2014 10:59 AM CDT 4 m g documented in this encounter Active and Recently Administered Medications Times are shown in CDT. Scheduled Medication Order 01/31/2014 02/01/2014 02/02/2014 cefoXITIN (MEFOXIN) IVPB 2 g (COMPLETED) 2 g, at 200 mL/hr, Intravenous, PRE-OP ONCE, 1 dose, Pre-op 1232 ($ Given - Prov ider: Kyle Becerra, RECOVERY UNIT OPERATOR-[facility]) famotidine (PEPCID) tablet 20 mg (COMPLETED) 20 mg, Oral, PRE-OP ONCE, 1 dose, Pre-op 1059 ($ Given - Prov ider: Zofia Najera RN) lidocaine buffered 1 % injection (CANCELED) Infiltration, PRE-OP MULTIPLE, 3 doses, Starting on Sat02/02/14 at 1036, Until Sat02/02/14 at 1524, May be used (0.2 ml locally to anesthetize prior to insertion if patient has NKA to Lidocaine)., Pre-op 1059 ($ Given - Prov ider: Zofia Najera RN) ondansetron (disintegrating) (ZOFRAN ODT) tablet 4 mg (COMPLETED) 4 mg, Oral, PRE-OP ONCE, 1 dose, Pre-op 1059 ($ Given - Prov ider: Zofia Najera RN) Continuous Medication Order 01/31/2014 02/01/2014 02/02/2014 lactated ringers infusion (CANCELED) at 20 mL/hr, Intravenous, PRE-OP CONTINUOUS, Starting on Sat02/02/14 at 1045, Until Sat02/02/14 at 1524, Pre-op 1059 ($ New Bag/Syri nge - Provider: Zofia Najera, RN)1300 ($ New Bag/Syringe - Provider: Kyle Becerra APRN-TEST RACK OPERATOR)1421 (Stopped - Provider: Zofia Najera RN) PRN Medication Order 01/31/2014 02/01/2014 02/02/2014 0.9% nacl irrigation solution (CANCELED) PRN, Other, Starting on Sat02/02/14 at 1245, Until Sat02/02/14 at 1310, Intra-op 1245 ($ Given - Prov ider: Sumeet Rhoades MD) iothalamate meglumine (CONRAY 60) 60 % injection (CANCELED) PRN, Starting on Sat02/02/14 at 1245, Until Sat02/02/14 at 1310, Intra-op 1245 ($ Given - Prov ider: Sumeet Rhoades MD) documented in this encounter Care Teams Trimmer Meat Relationship Specialty Start Date End Date Bharathi Lopez MD PCP - General Family Medicine 01/25/14 documented as of this encounter
--- OUTSIDE RECORDS SUMMARY | 2024-09-01 03:58 | XMS_ITS | Referral Summary ---
Author Organization [facility] Address [address] [place] [place] [address] Care Team Providers Care Management Coordinator Name Role Phone Bharathi Lopez MD Primary Care Provider [phone] Source Comments [facility],non-owned Affiliates and Associated Physician Practices is amultiple site organization consisting of ambulatory clinics and hospital sitesin [place], [place], [place] and [place]. This disclosure is being madepursuant to the Care Everywhere program and may not contain all information available regarding this patient. Last updated 18.[facility] Allergies No known active allergies Medications * [...] 02/02/2014 11:03 AM CDT Plan of Treatment Not on file Care Teams Management Coordinator Relationship Specialty Start Date End Date Bharathi Lopez MD PCP - General Family Medicine 01/25/14
--- OUTSIDE RECORDS SUMMARY | 2024-09-01 03:58 | XMS_ITS | Encounter Summary ---
Author Organization [facility] Address [address] [facility] [place] [address] Care Team Providers Care Sas Programmer Remote Name Role Phone Bharathi Lopez MD Primary Care Provider [phone] Reason for Visit * Auth/Cert - Closed Specialty Diagnoses / Procedures Referred By Mitchell polk Referred To Contact Diagnoses Calculus of ureter Procedures CYSTOSCOPY WITH RETROGRADE URETEROPYELOGRAPHY Referral ID Status Reason Start Date Expiration Date Visits Re quested Visits Authorized [id number] Closed 1 1 Encounter Details Date Type Department Care Team (Late st Contact Info) Description 02/02/2014 12:32 PM CDT Anesthesia Event [facility] - Perioperative Surgery [address] [place] [address] Darrel Contreras, DO [address] [facility] [address] [place] [address] Alexus Adams, JOB PRINTER-FLOWER CUTTER [address] [place] [id number] Anesthesia Record Procedure Summary Procedure Name Responsible Anesthesiologist Anesthesia Start Time Anesthesia Stop Time CYSTOSCOPY WITH RETROGRADE PYELOGRAM (Left: Bladder) Darrel Contreras DO 02/02/14 1232 02/02/14 1310 Events Date Time Event Comment 02/02/2014 1153 1232 An Start 1232 An Start Data 1238 An Induction 1239 LMA 1305 AN LMA REMOVE 1305 an stop data 1305 Elect Sign The providers l isted as staff are the responsible providers for the case. 1305 ANPTO2 1310 An Stop Meds Name Total midazolam 1 mg/mL injection 2 mg fentaNYL injection 100 mcg lidocaine 2% injection 50 mg propofol (DIPRIVAN) injection 150 mg ondansetron injection 4 mg ketorolac (TORADOL) 30 mg/ml injection 3 0 mg cefoXITIN (MEFOXIN) IVPB 2 g 2 g dexamethasone (DECADRON) 4 mg/ml injecti on 4 mg lactated ringers infusion 1,000 mL * Agents Name Insp. N2O Exp. Sevoflurane O2 Insp. Sevoflurane N2O * Blood No blood administrations on file. Lines, Drains, and Airways Type Details Placement Removal RETIRED Procedural Site 02/02/14; (bladd er); Not Applicable; 02/02/14; 202302/02/14 0000 by Khadra Aguilar RN 02/02/142023 by Generic, Auto Release Peripheral IV Date: 02/02/14; Time : 1118; Orientation: Right; Placed By: ESAU RAMIREZ; Length (in): 1 1/4in; Tolerance: Well 02/02/14 1118 by Zofia Najera RN 02/02/14 1412 by Zofia Najera RN LMA c amina rrna 2; Standard IV; mask not attempted; LMA; 4.0; CO2 Monitor; 02/02/14; 1305 02/02/14 1246 by 02/02/14 1305 by Kyle Becerra APRN-CRNA documented in this encounter Social History Tobacco [...] on file documented as of this encounter Progress Notes * Kyle Becerra APRN-CRNA - 02/02/2014 1:10 PM CDT ANESTHESIA POSTPROCEDURE EVALUATION John Magdaleno is a 68 y.o. male Temp: 36.4 ??C Pulse: 72 Resp: 16 BP: 139/101 mmHg SpO2: 96 % Pain Rating Score #: 0 A postop evaluation was performed on this patient with the following assessment: no apparent anesthesia complications Mental status: sufficiently recovered from acute administration of anesthesia to participate in theevaluation. Level of consciousness: awake General appearance: well-appearing Respiratory function: natural airway. Cardiac: stable Pain: comfortable/acceptable PONV: None Postop hydration: adequate. Final anesthesia type: general LMA Patient may be released from anesthesia care. documented in this encounter Consult Notes * Darrel Contreras DO - 02/02/2014 11:53 AM CDT Pre-anesthesia Evaluation Procedure(s) (LRB): CYSTOSCOPY WITH RETROGRADE URETEROPYELOGRAPHY () Vital Signs: Temp: [36.4 ??C] Pulse: [72] Resp: [16] BP: (139)/(101) SpO2: [96 %] BMI: Estimated Body mass index is 35.74 kg/(m^2) as calculated from the following: Height as of 01/25/14: 5' 8 (1.727 m). Weight as of 01/25/14: 235 lb(106.595 kg). History: Past Medical History Diagnosis Date ??? History of diabetes mellitus ??? Unspecified essential hypertension ??? GERD (gastroesophageal reflux disease) ??? Prostate hypertrophy Past Surgical History Procedure Date ??? Hernia repair ??? Hc lithotripsy eswl reports that he quit smoking about 34 years ago. His smoking use included Cigars. He does not have any smokeless tobacco history on file. He reports that he does not drink alcohol or use illicit drugs. Allergies: has no known allergies. Medications: Prescriptions prior to admission Medication Sig Dispense Refill ??? enalapril (VASOTEC) 20 MG tablet Take 20 mg by mouth 2 times daily. ??? Dutasteride-Tamsulosin HCl (NAV) 0.5-0.4 MG CAPS Take 1 Tab by mouth at bedtime. ??? pravastatin (PRAVACHOL) 40 MG tablet Take 80 mg by mouth at bedtime. ??? Cyanocobalamin (VITAMIN B-12) 5000 MCG SUBL Dissolve 1 Tab under the tongue once daily after breakfast. ??? RABEprazole EC (ACIPHEX) 20 MG tablet Take 20 mg by mouth once daily. ??? metformin ER 24hr (GLUCOPHAGE XR) 500MG tablet Take 500 mg by mouth 2 times daily,before breakfast and supper. No current facility-administered medications for this visit. No current outpatient prescriptions on file. Facility-Administered Medications Ordered in Other Visits: cefoXITIN (MEFOXIN) IVPB 2 g, 2 g, Intravenous, pre-OP once, Sumeet Rhoades MD; lactated ringers infusion, , Intravenous, pre-OP continuous,Jerome Rapp MD, Last Rate: 20 mL/hr at 02/02/14 1059; lidocaine buffered 1 % injection, , Infiltration, pre-OP multiple, Jerome Rapp MD, 0.5 mL at 02/02/14 1059 [COMPLETED] famotidine (PEPCID) tablet 20 mg, 20 mg, Oral, pre-OP once, Jerome Rapp MD, 20 mgat 02/02/14 1059; [COMPLETED] ondansetron (disintegrating) (ZOFRAN ODT) tablet 4 mg, 4 mg, Oral, pre-OP once, Jerome Rapp MD, 4 mg at 02/02/14 1059 Physical Exam: NPO status: no solids since midnight and no liquids within 2 hours Oriented to person, place and time Airway: II Neck ROM: full Dental exam findings: dentures upper Pulmonary exam: breath sounds CTA Negative for anesthesia complications Positive for gastroesophageal reflux disease, well controlled ECG reviewed Reviewed labs Plan for Anesthesia: ASA Score: 2. Anesthesia plan: general / LMA Planned method of induction: intravenous Planned postop destination: PACU Anesthesia plan, risks and benefits discussed with patient Anesthesia consent: obtained Plan accepted yes documented in this encounter Miscellaneous Notes * Addendum Note - Kyle Becerra APRN-CRNA - 02/02/2014 2:19 PM CDT * Addendum Note - Kyle Becerra APRN-CRNA - 02/02/2014 2:19 PM CDT documented in this encounter Plan of Treatment Not on file documented as of this encounter Visit Diagnoses Not on filedocumented in this encounter Administered Medications Inactive Administered Medications - up to 3 most recent administrations Medication Order MAR Action Action Date Dose Rate Site cefoXITIN (MEFOXIN) IVPB 2 g 2 g, at 200 mL/hr, Intravenous, PRE-OP ONCE, 1 dose, Pre-op $ Given 02/02/2014 12:32 PM CDT 2 g dexamethasone (DECADRON) injection PRN, Nausea/Vomiting, Starting on Sat02/02/14 at 1253, Until Sat02/02/14 at 1310, Anesthesia Intra-op $ Given 02/02/2014 12:53 PM CDT 4 mg fentaNYL (SUBLIMAZE) injection PRN, Starting on Sat02/02/14 at 1232, Until Sat02/02/14 at 1310, Anesthesia Intra-op $ Given 02/02/2014 12:32 PM CDT 100 mcg ketorolac (TORADOL) injection PRN, Starting on Sat02/02/14 at 1258, Until Sat02/02/14 at 1310, Anesthesia Intra-op $ Given 02/02/2014 12:58 PM CDT 30 mg lactated ringers infusion at 20 mL/hr, Intravenous, PRE-OP CONTINUOUS, Starting on Sat02/02/14 at 1045, Until Sat02/02/14 at 1524, Pre-op $ New Bag/Syringe 02/02/2014 1:00 PM CDT mL $ New Bag/Syringe 02/02/2014 10:59 AM CDT 20 mL /hr lidocaine (XYLOCAINE) 2 % injection PRN, Starting on Sat02/02/14 at 1238, Until Sat02/02/14 at 1310, Anesthesia Intra-op $ Given 02/02/2014 12:38 PM CDT 50 mg midazolam (VERSED) injection PRN, Starting on Sat02/02/14 at 1232, Until Sat02/02/14 at 1310, Anesthesia Intra-op $ Given 02/02/2014 12:32 PM CDT 2 mg ondansetron (ZOFRAN) injection PRN, Nausea/Vomiting, Starting on Sat02/02/14 at 1253, Until Sat02/02/14 at 1310, Anesthesia Intra-op $ Given 02/02/2014 12:53 PM CDT 4 mg propofol (DIPRIVAN) injection PRN, Starting on Sat02/02/14 at 1238, Until Sat02/02/14 at 1310, Anesthesia Intra-op $ Given 02/02/2014 12:38 PM CDT 150 mg documented in this encounter Care Teams Sas Programmer Remote Relationship Specialty Start Date End Date Bharathi Lopez MD PCP - General Family Medicine 01/25/14 documented as of this encounter
--- OUTSIDE RECORDS SUMMARY | 2024-09-01 03:58 | XMS_ITS | Encounter Summary ---
Author Organization [facility] Address [address] [place], [place] [address] [address] Care Team Providers Care Electroplating Sales Representative Name Role Phone Bharathi Lopez MD Primary Care Provider [phone] Encounter Details Date Type Department Care Team (Latest Contact Info) Description 01/25/2014 2:30 PM CDT - 01/25/2014 11:59 PM CDT Hospital [facility] [id number] [place] [address] [address] [place] [address] Sumeet Rhoades MD [address] [place] [id number] Discharge Disposition: Home or Self Care Social History Tobacco Use Types Packs/Day Years Used Date Smoking Tobacco: Never Alcohol Use Standard Drinks/Week Comments No 0 (1 standard drink = 0.6 oz pur e alcohol) Sex and Gender Information Value Date Recorded Sex Assigned at Not on file Gender Identity Not on file Sexual Orientation Not on file documented as of this encounter Last Filed Vital Signs Vital Sign Reading Time Taken Comments Blood Pressure - - Pulse - - Temperature - - Respiratory Rate - - Oxygen Saturation - - Inhaled Oxygen Concentration - - Weight 106.6 kg (235 lb) 01/25/2014 3:13 PM CDT Height 172.7 cm (5' 8 ) 01/25/2014 3:13 PM CDT Body Mass Index 35.73 01/25/2014 3:13 PM CDT documented in this encounter Medications [...] Take 20 mg by mouth once daily. pravastatin (PRAVACHOL) 20 MG tablet Take 20 mg by mouth at bedtime. 01/26/2014 documented as of this encounter Procedure Notes * Document, Scanned - 01/26/2014 3:19 PM CDTAssociated Order(s): EKG 12-LEAD * Document, Scanned - 01/26/2014 7:10 AM CDTAssociated Order(s): EKG 12-LEAD * Document, Scanned - 01/25/2014 3:51 PM CDTAssociated Order(s): EKG 12-LEAD documented in this encounter Nursing Notes * María Damon RN - 01/26/2014 9:10 AM CDT Attempted to contact pt today to review meds/doses, unsuccessful. * María Damon RN - 01/25/2014 3:21 PM CDT PT DID NOT HAVE CURRENT MEDS/DOSES DAY OF PRE TESTING. INSTRUCTED TO CALL SEC AND WILL UPDATE AND REVIEW MEDS TO TAKE AM OF SURGERY documented in this encounter Miscellaneous Notes * Miscellaneous Scans - Document, Scanned - 01/26/2014 9:12 PM CDT documented in this encounter Plan of Treatment Not on file documented as of this encounter Procedures Procedure Name Priority Date/Time Associated Diagnosis Comments BASIC METABOLIC PANEL (CALCIUM TOTAL) Routine 01/25/2014 3:41 PM CDT Preop examination CULTURE URINE Routine 01/25/2014 3:41 PM CDT Preop examination EKG 12-LEAD Routine 01/25/2014 2:30 PM CDT Preop examination documented in this encounter Results * (ABNORMAL) BASIC METABOLIC PANEL (CALCIUM TOTAL) (01/25/2014 3:41 PM CDT) Glucose 96 74 - 106 mg/dL 01/25/2014 4:34 PM CDT [facility] Sodium 136 136 - 145 mmol/L 01/25/2014 4:34 PM CDT [facility] Potassium 4.2 3.5 - 5.1 mmol/L 01/25/2014 4:34 PM CDT [facility] Chloride 102 98 - 107 mmol/L 01/25/2014 4:34 PM CDT [facility] CO2 29 22 - 31 mmol/L 01/25/2014 4:34 PM CDT [facility] Calcium 9.7 8.5 - 10.1 mg/dL 01/25/2014 4:34 PM CDT [facility] Anion Gap 5 5 - 15 mmol/L 01/25/2014 4:34 PM CDT [facility] BUN 15 7 - 21 mg/dL 01/25/2014 4:34 PM CDT [facility] Creatinine 0.49(L) 0.50 - 1.30 mg/dL 01/25/2014 4:34 PM CDT [facility] eGFR by MDRD >60 >60 mL/min/1.7 3m2 01/25/2014 4:34 PM CDT [facility] eGFR by MDRD >60 >60 mL/min/1.7 3m2 01/25/2014 4:34 PM CDT [facility] Blood BLOOD SPECIMEN / Unknown 01/25/2014 3:41 PM CDT 01/25/2014 4:21 PM CDT Sumeet Rhoades MD LAB - CHEMISTRY DES MADI Performing Organization Address City/[facility]/ZIP Co de Phone Number [facility] [address] [place] [address] * CULTURE URINE (01/25/2014 3:41 PM CDT) Culture No Growth (<1,000 CFU/mL) 01/27/2014 5:35 AM CDT [facility] Urine URINE SPECIMEN OBTAINED BY CLEAN CATCH PROCEDURE / Unknown 01/25/2014 3:41 PM CDT 01/25/2014 4:21 PM CDT Sumeet Rhoades MD LAB - MICROBIOLOGY O RDERABLES Performing Organization Address [facility] Co de Phone Number [facility] [address] [place] [address], [place] * EKG 12-LEAD (01/25/2014 2:30 PM CDT) Ventricular Rate 71 BPM [facility] Atrial Rate 71 BPM [facility] P-R Interval 158 ms [facility] QRS Duration ms 98 ms [facility] Q-T Interval ms 368 ms [facility] QTC Calculation (Bezet) 399 ms [facility] Calculated P Finger 22 degrees [facility] Calculated R Finger -3 degrees [facility] Interpretation EKG Normal sinus rhythm Normal ECG No previous ECGs available Confirmed by ELINA ZHONG, ANAHI ([id number]) on 01/26/2014 3:17:37 PM [facility] 01/25/2014 2:30 PM CDT 01/26/2014 3:17 PM CDT Narrative [facility] - 01/26/2014 2:17 PM CDT Procedure Note Document, Scanned - 01/25/2014 3:51 PM CDT Transcriptions Document, Scanned - 01/26/2014 7:10 AM CDT Document, Scanned - 01/26/2014 3:19 PM CDT Sumeet Rhoades MD ECG ORDERABLES [facility] documented in this encounter Visit Diagnoses Diagnosis Preop examination- Primary Preoperative examination, unspecified documented in this encounter Care Teams Electroplating Sales Representative Relationship Specialty Start Date End Date Bharathi Lopez MD PCP - General Family Medicine 01/25/14 documented as of this encounter
--- OUTSIDE RECORDS SUMMARY | 2024-09-01 03:58 | XMS_ITS | Encounter Summary ---
Author Organization [facility] Address [address] [facility] [place] [address] Care Team Providers Care Pediatrician Name Role Phone Bharathi Lopez MD Primary Care Provider [phone] Reason for Visit * Auth/Cert - Closed Specialty Diagnoses / Procedures Referred By Mitchell polk Referred To Contact Diagnoses Calculus of ureter Procedures CYSTOSCOPY WITH RETROGRADE URETEROPYELOGRAPHY Referral ID Status Reason Start Date Expiration Date Visits Re quested Visits Authorized [id number] Closed 1 1 Encounter Details Date Type Department Care Team (Latest Contact Info) Description 02/02/2014 10:42 AM CDT - 02/02/2014 2:24 PM CDT Hospital Encounter [facility] [address] [place] [address] Sumeet Rhoades MD [address] [place] [phone] Surgery General Discharge Disposition: Home or Self Care Social [...] Rhoades MD - 02/02/2014 2:45 PM CDT [facility] OPERATIVE REPORT PATIENT: : ANDREINA THOMAS MR#: [id number] ADMIT DATE: 02/02/2014 CSN: [id number] DATE OF SURGERY: 02/02/2014 : 1945 PHYSICIAN: Sumeet Rhoades MD ROOM: [facility] PREOPERATIVE DIAGNOSIS: Left distal stone. POSTOPERATIVE DIAGNOSIS: [...] and draped in the sterile fashion. A 21-Irish cystoscope was placed in the bladder. The urethra was normal. The prostatic urethra was obstructed. The bladder was carefully inspected with 30 and 70-degree lenses. There was no mucosal abnormality, stones, or tumors. Retrograde appeared to show calcification at the UVJ. A 0.035 inch sensor wire was placed into the renal pelvis. A 10-Irish dilator was replaced across the ureter orifice. I was easily able to pass the short, rigid ureteroscope into the distal ureter where no stones were seen. The wire was removed and there was good efflux of urine from the kidney. So the procedure was terminated. The patient was taken to recovery room in stable condition ESTIMATED BLOOD LOSS: COMPLICATIONS: CONDITION: DISPOSITION: MD HELIO MaganaB/FLOR[place] #: [id number] documented in this encounter Miscellaneous Notes * [...] POINT OF CARE (02/02/2014 1:32 PM CDT) Pathologist [facility] Glucose WB/POC 100 70 - 106 mg/dL 02/03/2014 7:13 AM CDT [facility] Blood BLOOD SPECIMEN / Unknown 02/02/2014 1:32 PM CDT 02/03/2014 7:13 AM CDT Sumeet Rhoades MD LAB - POINT OF CARE ORDERABLES [facility] [address] [place] [address] * GLUCOSE - POINT OF CARE (02/02/2014 11:21 AM CDT) Glucose WB/POC 100 70 - 106 mg/dL 02/02/2014 11:23 AM CDT [facility] Blood BLOOD SPECIMEN / Unknown 02/02/2014 11:21 AM CDT 02/02/2014 11:23 AM CDT Sumeet Rhoades MD LAB - POINT OF CARE ORDERABLES Performing Organization Address City/[facility] Co de Phone Number [facility] [address] [place] [address] documented in this encounter Visit Diagnoses Diagnosis Kidney stone- Primary Calculus of kidney documented in this encounter Administered Medications Inactive Administered Medications - up to 3 most recent administrations Medication Order MAR Action Action Date Dose Rate Site famotidine (PEPCID) tablet 20 mg 20 mg, Oral, PRE-OP ONCE, 1 dose, Pre-op $ Given 02/02/2014 10:59 AM CDT 20 mg lactated ringers infusion at 20 mL/hr, [...] 1232 ($ Given - Prov ider: Kyle Becerra APRN-LABOR DELIVERY RN) famotidine (PEPCID) tablet 20 mg (COMPLETED) 20 [...] ($ New Bag/Syri nge - Provider: Zofia Najera RN)1300 ($ New Bag/Syringe - Provider: Kyle Becerra APRN-LABOR DELIVERY RN)1421 (Stopped - Provider: Zofia Najera RN) PRN [...] MD) documented in this encounter Care Teams Pediatrician Relationship Specialty Start Date End Date Bharathi Lopez MD PCP - General Family Medicine 01/25/14 documented as of this encounter
== END 2024-08-25 07:26 | disposition home or self-care (01) ==
PROVIDERS: PCP Family Medicine; Visit Provider Urology
DX: D41.01 Neoplasm of uncertain behavior of right kidney (principal); N28.1 Cyst of kidney, acquired; K86.2 Cyst of pancreas
CPT/HCPCS: 74183